=== PATIENT | female | born 1975 | race Caucasian/White ===

== ENCOUNTER → 2020-12-03 | Outpatient (CLI) | payer MEDICAID, SELFPAY ==
[2020-12-03 14:55] VITALS: BMI 58.6
[2020-12-09 11:26] LABS: HPV APTIMA, High Risk Negative (Negative)
== END | disposition home or self-care (01) ==
LOC: LABSPEC 16:18
PROVIDERS: PCP Student in an Organized Health Care Education/Training Program; Visit Provider Nurse Practitioner Women's Health
DX: Z12.4 Encounter for screening for malignant neoplasm of cervix (principal)
CPT/HCPCS: 87624; 88175; G0145

== ENCOUNTER 2020-12-24 09:14 | Emergency (ER) | payer MEDICAID, SELFPAY ==
[2020-12-03 14:55] VITALS: BMI 58.6
[2020-12-24 09:15] VITALS: BP 139/76; PULSE 79; RESP 17; TEMP 36.8; O2SAT 99; BMI 58.8
--- NOTE | 2020-12-24 09:23 | EDS_ITS ---
HPI History of Present Illness HPI Narrative: Patient presents with left foot pain that is nontraumatic for the past few days. No other injuries no ankle pain. No fever chills no redness. Chief Complaint: Lower Extremity Injury [facility] Medical History (Updated 12/24/20 @ 10:[address] Amadeo Santizo MD) Depression Home Medications bupropion HCl 300 mg 24 hr tablet, extended release 300 mg PO QAM 12/03/20 [History Last Taken Unknown] cholecalciferol (vitamin D3) 50 mcg (2,000 unit) capsule 50 mcg PO BID cap 12/03/20 [History Last Taken Unknown] hydrocodone-acetaminophen 1 tab PO QHS PRN 3 Days #10 tab 12/24/20 [Rx Last Taken Unknown] Allergy/AdvReac Type Severity Reaction Status Date / Time No Known Allergies Allergy Verified 12/24/20 09:14 Family History (Updated 12/03/20 @ 15:07 by Ilsa Wright) Mother Lung cancer History of rectal or anal cancer Kidney disease Father Myocardial infarction Brother Thyroid cancer Unknown Thyroid disorder Surgical History S/P Social History (Updated 12/03/20 @ 15:01 by Ilsa Wright) household members: significant other number of children: 2 current occupational status: employed current occupation: [employer] In history of recent travel: No sexually active: Yes Smoking Status: Never smoker alcohol intake: never substance use type: does not use what type of physical activity do you participate in: walking seatbelt use: always do you feel safe at home: Yes additional social history: single ROS ROS ED ROS Narrative Past medical history: none Medications: Reviewed Social history: Noncontributory Review of systems: Musculoskeletal: Left foot pain Skin: No abrasions or lacerations Neurological: No weakness or paresthesias Hematologic: No easy bleeding or easy bruising EXAM Physical Exam Narrative Exam Narrative: Physical exam General: Patient does not appear in significant distress . Head: Normocephalic, Atraumatic Neck: No C-spine tenderness Cardiovascular: Normal distal pulses Back: Nontender, Normal Inspection. Extremities: Left foot shows tenderness over the medial arch region. No tenderness over the ankle. No tenderness over the plantar fascia or calcaneus. No dorsal tenderness over the metatarsal or phalangeal region. Skin: No abrasions, no lacerations Neurological: Normal strength and sensation Const Vital Signs: 12/24/20 09:15 Temperature 98.3 F Temperature Source Temporal Pulse Rate 79 Respiratory Rate 17 Blood Pressure 139/76 H Blood Pressure Mean 97 Pulse Ox 99 Oxygen Delivery Method Room Air MDM MDM MDM Narrative Medical decision making narrative: Patient has a small avulsion fracture, I will refer to podiatry and give her analgesia and a postop shoe. Radiography Diagnostic Testing: Radiology Impression Foot X-Ray 12/24/20 09:30 IMPRESSION: Nondisplaced avulsion fracture along the posterior medial aspect of the tarsal navicular bone with overlying soft tissue swelling. Electronically Signed: Marcell Donahue MD at 9:55 EDT , Service support , X-ray interpreted by me and radiologist shows a small avulsion fracture of the navicular bone. Discharge Plan Triage Chief Complaint: Lower Extremity Injury ED Provider: Amadeo Santizo Dx/Rx/DC Orders Clinical Impression: Foot fracture Instructions: ED Fracture, Foot Prescriptions: New hydrocodone-acetaminophen 5-325 mg tablet 1 tab PO QHS PRN (Reason: pain) 3 Days Qty: 10 RF: 0 No Action bupropion HCl [Wellbutrin XL] 300 mg tablet extended release 24 hr 300 mg PO QAM RF: 0 cholecalciferol (vitamin D3) 50 mcg (2,000 unit) capsule 50 mcg PO BID RF: 0 Primary Care Provider: Gabino Mayo Referrals: Gabino Mayo, [Primary Care Provider] - 2 Days Disposition Disposition: Home, Self Care
--- NOTE | 2020-12-24 09:30 | RAD_ITS ---
STUDY: X-RAY - LEFT FOOT CLINICAL: Female, 45 years old. Pain TECHNIQUE: 3 view(s) of the foot. COMPARISON: None. FINDINGS: Avulsion fracture along the posterior medial aspect of the tarsal navicular bone. Normal visualized subtalar, talonavicular, calcaneocuboid, tarsal and tarsometatarsal articulations. Normal metatarsi. Normal metatarsophalangeal joint of the great toe. Normal tibial and fibular sesamoid bones. Normal interphalangeal joint of the great toe. Normal phalanges of the great toe. Normal second through fifth metatarsophalangeal joints. Normal interphalangeal joints and phalanges of the lesser toes. Medial soft tissue swelling. RAD/Foot min 3 Views IMPRESSION: Nondisplaced avulsion fracture along the posterior medial aspect of the tarsal navicular bone with overlying soft tissue swelling. Electronically Signed: Marcell Donahue MD at 9:55 EDT , Service support ,
[2020-12-24 11:00] VITALS: BP 134/65
== END 2020-12-24 11:01 | disposition home or self-care (01) ==
PROVIDERS: Emergency Provider Emergency Medicine; PCP Student in an Organized Health Care Education/Training Program
DX: S92.255A Nondisplaced fracture of navicular [scaphoid] of left foot, initial encounter for closed fracture (principal); X58.XXXA Exposure to other specified factors, initial encounter; Y93.9 Activity, unspecified; Y92.9 Unspecified place or not applicable; Y99.9 Unspecified external cause status; F32.9 Major depressive disorder, single episode, unspecified; Z79.899 Other long term (current) drug therapy
CPT/HCPCS: 73630; 99283